=== PATIENT | male | born 1945 | race Two or more races ===

== ENCOUNTER 2024-07-24 17:23 | Inpatient (IN) | payer MEDICARE, OTHER ==
[~2024-07-24] VITALS: Ht 175.3 cm; Wt 76.7 kg
[2024-07-24 18:21] LABS: BASOPHILS # (AUTO) 0.1 K/uL (0.0-0.2); BASOPHILS % (AUTO) 0.9 % (0.0-2.0); EOSINOPHILS # (AUTO) 0.5 K/uL (0.0-0.7); EOSINOPHILS % (AUTO) 4.2 % (0.0-6.0); HEMATOCRIT 27 % (39-51); HEMOGLOBIN 8.6 g/dL (13.5-17.5); LYMPHOCYTES # (AUTO) 0.9 K/uL (0.8-4.8); MEAN CORPUSCULAR HEMOGLOBIN 29 PG (26.0-33.0); MEAN CORPUSCULAR HGB CONC 32 g/dl (31.0-36.0); MEAN CORPUSCULAR VOLUME 91 fL (80-96); MONOCYTES # (AUTO) 0.7 K/uL (0.1-1.30); NEUTROPHILS # (AUTO) 10.8 K/uL (1.8-8.9); NEUTROPHILS % (AUTO) 82.9 % (43.0-81.0); PLATELET COUNT (AUTO) 293 K/uL (150-450); RED BLOOD CELL COUNT(AUTO) 2.95 MIL/uL (4.5-6.0); RED CELL DISTRIBUTION WIDTH 22.6 % (11.5-15.0)
[2024-07-24 18:28] LABS: CALCIUM, SERUM 8.5 mg/dL (8.5-10.1); CARBON DIOXIDE 27 mmol/L (21-32); CHLORIDE 106 mmol/L (98-107); CREATININE 1.1 mg/dL (0.6-1.3); GLUCOSE 128 mg/dL (74-106); POTASSIUM 3.6 mmol/L (3.5-5.1); SODIUM SERUM 139 mmol/L (136-145); UREA NITROGEN, BLOOD 24 mg/dL (7-18)
[2024-07-24 18:32] LABS: INR 1.15 (0.91-1.10); PARTIAL THROMBOPLASTIN TIME 28.7 SEC (24.3-34.3); PROTHROMBIN TIME 11.7 SECS (9.2-11.1)
[2024-07-24 18:35] LABS: ALANINE AMINOTRANSFERASE 11 U/L (12-78); ALBUMIN 2.7 g/dL (3.4-5.0); ALKALINE PHOSPHATASE 64 U/L (46-116); ASPARTATE AMINOTRANSFERASE 26 U/L (15-37); BILIRUBIN,DIRECT 0.1 mg/dL (0.0-0.2); BILIRUBIN,TOTAL 0.4 mg/dL (0.2-1.0); TOTAL PROTEIN, SERUM 6.2 g/dL (6.4-8.2)
[2024-07-24] MEDS ORDERED: VANCOMYCIN 1 GM /D5W 250 ML PB IV ONE (19:30)
[2024-07-24] MEDS ORDERED: CEFEPIME 1 GM VIAL ONE (19:30)
[2024-07-24] MEDS: CEFEPIME 1 GM in IV D5W 50 ML IV ONE (19:31)
[2024-07-24] MEDS: VANCOMYCIN 1 GM in IV D5W 250 ML IV ONE (19:33)
[2024-07-24] MEDS ORDERED: Z GUARD REMEDY 4 OZ OINT TP PRN (22:00)
[2024-07-24] MEDS ORDERED: ALBUTEROL FS 2.5 MG/3 ML VIAL.NEB NEB PRN (22:00)
[2024-07-24] MEDS ORDERED: IPRATROPIUM NEB FS 0.5 MG/2.5 ML AMPUL.NEB NEB PRN (22:00)
[2024-07-24] MEDS ORDERED: ACETAMINOPHEN 325 MG TABLET PO PRN (22:00)
[2024-07-24] MEDS ORDERED: ONDANSETRON HCL/PF 4 MG/2 ML VIAL IVP PRN (22:00)
[2024-07-24] MEDS ORDERED: MAG HYDROX/AL HYDROX/SIMETH 30 ML UDC PO PRN (22:00)
[2024-07-24] MEDS ORDERED: MAGNESIUM HYDROXIDE 30 ML UDC PO PRN (22:00)
[2024-07-24] MEDS ORDERED: NITROGLYCERIN 0.4 MG/TAB BOTTLE SL PRN (22:00)
[2024-07-24] MEDS ORDERED: CARV25TA PO (22:50)
[2024-07-24] MEDS ORDERED: ATOR40TA PO (22:50)
[2024-07-24] MEDS ORDERED: FINA5TAB3 PO (22:50)
[2024-07-24] MEDS ORDERED: LEVO137T24 PO (22:50)
[2024-07-24] MEDS ORDERED: FURO20TA4 PO (22:50)
[2024-07-24] MEDS ORDERED: HYDR-4077 PO (22:50)
[2024-07-25] MEDS: ENOXAPARIN SODIUM 40 MG/0.4 ML DISP.SYRIN SQ SCH (00:46)
[2024-07-25] MEDS: AMPICILLIN 2 GM in IV NS 0.9% 100 ML IV SCH (02:00)
[2024-07-25 02:16] VITALS: BP 134/82; TEMP 97.5; O2SAT 94
[2024-07-25 04:47] VITALS: BP 133/72; TEMP 98.3; O2SAT 100
[2024-07-25] MEDS: PANTOPRAZOLE 40 MG TABLET.DR PO SCH (07:52)
[2024-07-25] MEDS: LEVOTHYROXINE SODIUM 125 MCG TABLET PO SCH (07:52)
[2024-07-25] MEDS: CEFTRIAXONE 2 G in IV D5W 100 ML IV SCH (07:53)
[2024-07-25 08:00] VITALS: BP 148/88; TEMP 97.5; O2SAT 97
[2024-07-25 08:00] LABS: BASOPHILS # (AUTO) 0.1 K/uL (0.0-0.2); BASOPHILS % (AUTO) 0.6 % (0.0-2.0); EOSINOPHILS # (AUTO) 0.5 K/uL (0.0-0.7); EOSINOPHILS % (AUTO) 4.6 % (0.0-6.0); HEMATOCRIT 26 % (39-51); HEMOGLOBIN 8.4 g/dL (13.5-17.5); LYMPHOCYTES # (AUTO) 1.2 K/uL (0.8-4.8); LYMPHOCYTES % (AUTO) 10.1 % (20.0-44.0); MEAN CORPUSCULAR HEMOGLOBIN 29 PG (26.0-33.0); MEAN CORPUSCULAR HGB CONC 32 g/dl (31.0-36.0); MEAN CORPUSCULAR VOLUME 90 fL (80-96); MONOCYTES # (AUTO) 0.7 K/uL (0.1-1.30); MONOCYTES % (AUTO) 6.3 % (2.0-12.0); NEUTROPHILS % (AUTO) 78.4 % (43.0-81.0); PLATELET COUNT (AUTO) 297 K/uL (150-450); RED BLOOD CELL COUNT(AUTO) 2.89 MIL/uL (4.5-6.0); RED CELL DISTRIBUTION WIDTH 23.2 % (11.5-15.0); WHITE BLOOD COUNT (AUTO) 11.5 K/uL (4.3-11.0)
[2024-07-25] MEDS ORDERED: DEXT15DR27 EACHEYE (08:02)
[2024-07-25] MEDS ORDERED: GUAI100S69 PO (08:02)
[2024-07-25] MEDS ORDERED: AMPI1VIA26 IV (08:02)
[2024-07-25] MEDS ORDERED: ASPI-1169 PO (08:02)
[2024-07-25] MEDS ORDERED: CEFT2FRO2 IV (08:02)
[2024-07-25] MEDS: hydrALAZINE HCL 50 MG TABLET PO SCH (08:14)
[2024-07-25] MEDS: FUROSEMIDE 20 MG TABLET PO SCH (08:14)
[2024-07-25] MEDS: ATORVASTATIN 40 MG TABLET PO SCH (08:14)
[2024-07-25] MEDS: CARVEDILOL 12.5 MG TABLET PO SCH (08:14)
[2024-07-25] MEDS: FINASTERIDE (5 MG) 5 MG TABLET PO SCH (08:14)
[2024-07-25 08:16] LABS: ALANINE AMINOTRANSFERASE 8 U/L (12-78); ALBUMIN 2.4 g/dL (3.4-5.0); ALKALINE PHOSPHATASE 64 U/L (46-116); ASPARTATE AMINOTRANSFERASE 24 U/L (15-37); BILIRUBIN,DIRECT 0.1 mg/dL (0.0-0.2); BILIRUBIN,TOTAL 0.4 mg/dL (0.2-1.0); CALCIUM, SERUM 8.4 mg/dL (8.5-10.1); CARBON DIOXIDE 28 mmol/L (21-32); CHLORIDE 108 mmol/L (98-107); GLUCOSE 108 mg/dL (74-106); PHOSPHORUS 3.2 mg/dL (2.5-4.9); POTASSIUM 3.4 mmol/L (3.5-5.1); SODIUM SERUM 145 mmol/L (136-145); TOTAL PROTEIN, SERUM 5.6 g/dL (6.4-8.2); UREA NITROGEN, BLOOD 19 mg/dL (7-18)
[2024-07-25] MEDS ORDERED: LEVOTHYROXINE SODIUM 137 MCG TABLET PO SCH (09:00)
[2024-07-25] MEDS: POTASSIUM CHLORIDE 20 MEQ TAB.PRT.SR PO SCH ×2 (09:30→10:43)
[2024-07-25] MEDS: FUROSEMIDE 40 MG/4 ML VIAL IV SCH (10:42)
[2024-07-25 12:00] VITALS: BP 137/77; TEMP 97.6; O2SAT 100
[2024-07-25 16:00] VITALS: BP 144/72; TEMP 97.4; O2SAT 98
[2024-07-25 20:00] VITALS: BP 117/72; TEMP 97.7; O2SAT 99
== END 2024-07-25 23:16 | disposition short-term general hospital (02) | DRG 193 ==
LOC: ER 17:34 → TELE1 22:22
PROVIDERS: ADMIT Nurse Practitioner Family
DX: J15.9 Unspecified bacterial pneumonia (principal); I21.4 Non-ST elevation (NSTEMI) myocardial infarction; J96.01 Acute respiratory failure with hypoxia; I38 Endocarditis, valve unspecified; E46 Unspecified protein-calorie malnutrition; Z95.2 Presence of prosthetic heart valve; Z95.1 Presence of aortocoronary bypass graft; Z95.0 Presence of cardiac pacemaker; Z86.79 Personal history of other diseases of the circulatory system; N40.0 Benign prostatic hyperplasia without lower urinary tract symptoms; I25.10 Atherosclerotic heart disease of native coronary artery without angina pectoris; I50.9 Heart failure, unspecified; I11.0 Hypertensive heart disease with heart failure; Z88.8 Allergy status to other drugs, medicaments and biological substances; Z79.82 Long term (current) use of aspirin; Z79.899 Other long term (current) drug therapy; Z79.890 Hormone replacement therapy; E78.5 Hyperlipidemia, unspecified; D63.8 Anemia in other chronic diseases classified elsewhere; E03.9 Hypothyroidism, unspecified; R73.9 Hyperglycemia, unspecified; E88.09 Other disorders of plasma-protein metabolism, not elsewhere classified; E87.6 Hypokalemia
CPT/HCPCS: 36415; 71045-TC; 80048-TC; 80076-TC; 83735-TC; 83880; 84100-TC; 84443-TC; 84484-TC; 85025-TC; 85730-TC; 86803; 93307-TC; 94799-TC; A4223; G0378; J0290; J0692; J0696; J1650; J1940; J3370; J7030; J7050; J7060